=== PATIENT | male | born 1965 | race Asian ===

== ENCOUNTER 2019-07-08 18:19 | Emergency (ER) | payer SELFPAY ==
[~2019-07-08] VITALS: Ht 182.9 cm; Wt 120.2 kg
[2019-07-08 18:31] VITALS: BP_SYST 163
--- NOTE | 2019-07-08 18:45 | NUR ---
Patient triaged and placed in waiting room. VSS and patient appears in no acute distress at this time. Awaiting available bed, and MD notified of need for MSE.
--- NOTE | 2019-07-08 22:00 | NUR ---
Patient to ER bed 3 to gown for evaluation. Side rails up.
--- NOTE | 2019-07-08 22:05 | NUR ---
PT HERE FOR SEVERE PAIN NECK AND RT ARM NUMBNESS. DENIES INJURY. HE STOPPED ALL BP MEDS OVER A YEAR AGO RESP UNLABORED, SKIN WARM AND DRY. COMMUNICATES CLEARLY IN FULL COMPLETE SENTENCES DENIES CP/SOB.
[2019-07-08 22:25] LABS: BASOPHILS # (AUTO) 0.1 K/uL (0.0-0.2); BASOPHILS % (AUTO) 1.1 % (0.0-2.0); EOSINOPHILS # (AUTO) 0.1 K/uL (0.0-0.4); EOSINOPHILS % (AUTO) 1.8 % (0.0-4.0); HEMATOCRIT 46.3 % (36-54); HEMOGLOBIN 15.9 g/dL (14.0-18.0); LYMPHOCYTES # (AUTO) 1.8 K/uL (1.0-5.5); MEAN CORPUSCULAR HEMOGLOBIN 32 pg (27-31); MEAN CORPUSCULAR HGB CONC 34 % (32-36); MEAN CORPUSCULAR VOLUME 94 fL (79.0-98.0); MONOCYTES # (AUTO) 0.8 K/uL (0.0-1.0); MONOCYTES % (AUTO) 11.3 % (1.7-9.3); NEUTROPHILS # (AUTO) 4.5 K/uL (1.8-7.7); NEUTROPHILS % (AUTO) 60.8 % (40.0-70.0); PLATELET COUNT (AUTO) 185 K/uL (130-430); RED BLOOD CELL COUNT(AUTO) 4.93 MIL/uL (4.2-6.2); RED CELL DISTRIBUTION WIDTH 13.4 % (9.0-15.0); WHITE BLOOD COUNT (AUTO) 7.3 K/uL (4.8-10.8)
[2019-07-08 22:28] LABS: CREATININE 1.2 mg/dL (0.55-1.30); POTASSIUM 3.4 mmol/L (3.5-5.1)
[2019-07-08 22:34] LABS: ALBUMIN 3.7 g/dL (3.4-4.8); TOTAL BILIRUBIN 0.7 mg/dL (0.0-1.0)
--- NOTE | 2019-07-08 22:56 | NUR ---
DR ALTAMIRANO IN TO ASSESS
[2019-07-08] MEDS ORDERED: KETOROLAC TROMETHAMINE 60 MG/2 ML VIAL IM ONE (23:00)
[2019-07-08] MEDS ORDERED: PREDNISONE 20 MG TABLET PO ONE (23:00)
[2019-07-08] MEDS ORDERED: MORPHINE 4 MG/ML INJ. SYRINGE IM ONE (23:00)
[2019-07-08] MEDS ORDERED: HYDROCHLOROTHIAZIDE 25 MG TABLET (HCTZ) PO ONE (23:15)
--- NOTE | 2019-07-08 23:48 | NUR ---
VSS no s/s of acute distress Resting on gurney rails up
[2019-07-09 00:50] VITALS: BP_SYST 112
--- NOTE | 2019-07-09 00:50 | NUR ---
Patient given written and verbal discharge instructions and verbalizes understanding. ER MD discussed with patient the results and treatment provided. Patient in stable condition. ID arm band removed. IV catheter removed intact and dressing applied, no active bleeding. Rx of Hydrochlorothiazide, Prednisone, given. Patient educated on pain management and to follow up with PMD. Pain Scale 0/10 Opportunity for questions provided and answered. Medication side effect fact sheet provided.
== END 2019-07-09 00:50 | disposition home or self-care (01) ==
LOC: SED 18:19
DX: M54.10 Radiculopathy, site unspecified (principal); I10 Essential (primary) hypertension; F17.200 Nicotine dependence, unspecified, uncomplicated
CPT/HCPCS: 36415; 73030; 80053; 85025; 96372; 99284; J1885; J2270; J7512

== ENCOUNTER 2019-07-29 21:15 | Emergency (ER) | payer SELFPAY ==
[~2019-07-29] VITALS: Ht 182.9 cm; Wt 131.1 kg
[2019-07-29 21:18] VITALS: BP_SYST 143
--- NOTE | 2019-07-29 21:18 | NUR ---
Patient triaged and placed in waiting room. VSS and patient appears in no acute distress at this time. Accompanied by self, awaiting available bed, and MD notified of need for MSE.
--- NOTE | 2019-07-29 23:38 | NUR ---
Patient to ER bed 04 to gown for evaluation. Side rails up. Report given to MARKUS Hollis
--- NOTE | 2019-07-29 23:52 | NUR ---
ER Dr. Dixon at bedside examining patient.
--- NOTE | 2019-07-30 00:02 | NUR ---
patient is a&o x4 complaining of right shoulder pain that started about two weeks ago when he woke up with a sharp pain between his shoulder blades that was shooting down his right arm. Patient reports the pain is now shooting down his underarm and his thumb, pointer finger, and middle finger have a tingling and numbing sensation. Patient rates his pain a 10 out of 10. Patient appears to have full range of motion of arm and shoulder. Patient reports his arm is most comfortable when it is raised aboved his head. pt has been seen for this same issue and was prescribed ibuprofen 600mg, cyclobenzapr 10mg, and prednisone 20mg. pt has a hx of high blood pressure and takes hydrochlorothiazide 25mg.
--- NOTE | 2019-07-30 00:10 | NUR ---
rad Patient transported to radiology via wheelchair, accompanied by
--- NOTE | 2019-07-30 01:27 | NUR ---
Patient resting in bed awaiting results of imaging. No apparent signs of distress.
--- NOTE | 2019-07-30 02:25 | NUR ---
Patient laying in bed comfortable with arm raised above head to help ease pain. Patient does not appear to be in distress.
[2019-07-30] MEDS ORDERED: METHOCARBAMOL 500 MG TABLET PO ONE (03:00)
[2019-07-30] MEDS ORDERED: KETOROLAC TROMETHAMINE 60 MG/2 ML VIAL IM ONE (03:00)
--- NOTE | 2019-07-30 03:30 | NUR ---
patient tolerated medications well. no signs of distress.
[2019-07-30 04:19] VITALS: BP_SYST 119
--- NOTE | 2019-07-30 04:19 | NUR ---
Patient given written and verbal discharge instructions and verbalizes understanding. ER MD discussed with patient the results and treatment provided. Patient in stable condition. ID arm band removed. Rx of METHOCARBAMOL, BENICAR, IBUPROFEN given. Patient educated on pain management and to follow up with PMD. Pain Scale 5/10. Opportunity for questions provided and answered. Medication side effect fact sheet provided.
== END 2019-07-30 04:19 | disposition home or self-care (01) ==
LOC: SED 21:15
DX: S43.431A Superior glenoid labrum lesion of right shoulder, initial encounter (principal); M54.12 Radiculopathy, cervical region; I10 Essential (primary) hypertension; X50.0XXA Overexertion from strenuous movement or load, initial encounter; Y93.89 Activity, other specified; Y92.89 Other specified places as the place of occurrence of the external cause; Y99.8 Other external cause status
CPT/HCPCS: 70450; 72125; 73030; 96372; 99285; J1885

== ENCOUNTER 2020-11-16 21:26 | Emergency (ER) | payer SELFPAY ==
[~2020-11-16] VITALS: Ht 182.9 cm; Wt 125.2 kg
[2020-11-16 21:26] VITALS: BP_SYST 187
[2020-11-16] MEDS ORDERED: cloNIDine HCL 0.1 MG TABLET PO ONE (23:00)
[2020-11-16] MEDS ORDERED: AMLO5TAB4 PO (23:43)
[2020-11-16] MEDS ORDERED: PROCHLORPERAZINE EDISYLATE 10 MG/2 ML VIAL IM ONE (23:45)
[2020-11-16] MEDS ORDERED: DIPHENHYDRAMINE INJ 50 MG/ML VIAL IM ONE (23:45)
[2020-11-16] MEDS ORDERED: KETOROLAC TROMETHAMINE 30 MG VIAL IM ONE (23:45)
[2020-11-17] MEDS ORDERED: cloNIDine HCL 0.1 MG TABLET ONE (00:10)
[2020-11-17] MEDS ORDERED: cloNIDine HCL 0.1 MG TABLET PO ONE (00:15)
[2020-11-17 01:05] VITALS: BP_SYST 177
== END 2020-11-17 01:05 | disposition home or self-care (01) ==
LOC: SED 21:26
DX: I10 Essential (primary) hypertension (principal); G43.909 Migraine, unspecified, not intractable, without status migrainosus; Z79.899 Other long term (current) drug therapy
CPT/HCPCS: 70450; 76376; 96372; 99284; J0780; J1200; J1885

== ENCOUNTER 2020-12-26 18:13 | Emergency (ER) | payer SELFPAY ==
[~2020-12-26] VITALS: Ht 182.9 cm; Wt 126.6 kg
[~2020-12-26 18:13] MED LIST: AMLO5TAB4 PO
[2020-12-26 18:29] VITALS: BP_SYST 213
[2020-12-26] MEDS ORDERED: amLODIPine BESYLATE 10 MG TABLET ONE (18:59)
[2020-12-26] MEDS ORDERED: BUPIVACAINE /PF 0.25% 30 ML VIAL INJ ONE (19:00)
[2020-12-26] MEDS ORDERED: amLODIPine BESYLATE 10 MG TABLET PO ONE (19:00)
[2020-12-26] MEDS ORDERED: AMOX500C2 PO (21:24)
[2020-12-26] MEDS ORDERED: IBUP-1969 PO (21:24)
[2020-12-26] MEDS ORDERED: KETOROLAC TROMETHAMINE 60 MG/2 ML VIAL IM ONE (21:30)
[2020-12-26 21:41] VITALS: BP_SYST 140
== END 2020-12-26 21:41 | disposition home or self-care (01) ==
LOC: SED 18:13
DX: K08.89 Other specified disorders of teeth and supporting structures (principal); I10 Essential (primary) hypertension; Z79.899 Other long term (current) drug therapy
CPT/HCPCS: 64400; 96372; 99284; J3490